=== PATIENT | female | born 2000 | race Caucasian/White ===

== ENCOUNTER → 2022-02-01 | Outpatient (CLI) | payer OTHER, SELFPAY ==
[2022-02-01 12:35] LABS: Amphetamine Urine VISTA NEGATIVE (<1000 ng/mL); Barbiturate Urine VISTA NEGATIVE (< 200 ng/mL); Benzodiazepine Urine VISTA NEGATIVE (< 200 ng/mL); Cocaine Urine VISTA NEGATIVE (< 300 ng/mL); Ecstacy Urine VISTA NEGATIVE (< 500 ng/mL); Methadone Urine VISTA NEGATIVE (< 300 ng/mL); PCP Urine VISTA NEGATIVE (< 25 ng/mL); THC Urine VISTA NEGATIVE (< 50 ng/mL); Vista UDS pH Range 6
[2022-02-02 22:07] LABS: Chlamydia By Nucleic Acid AMP Negative (Negative)
[2022-02-04 14:59] LABS: Gonococcus By Nucleic Acid AMP Negative (Negative)
== END | disposition home or self-care (01) ==
PROVIDERS: Referring Provider Obstetrics & Gynecology; Visit Provider Obstetrics & Gynecology
DX: Z34.00 Encounter for supervision of normal first pregnancy, unspecified trimester (principal)
CPT/HCPCS: 80307; 87077; 87086; 87088; 87186; 87491; 87591

== ENCOUNTER → 2022-02-13 | Outpatient (CLI) | payer OTHER, SELFPAY ==
[2022-02-13 15:25] LABS: Absolute Lymphocyte Count 1.89 X10^3/uL (0.83-4.51); Absolute Neutrophil Count 8.4 X10^3/uL (2.0-7.7); Basophil# 0.03 X10^3/uL; Basophil% 0.3 % (0-1); Eosinophils% 1.8 % (0-5); Hematocrit 38.3 % (37-47); Hemoglobin 12.6 g/dL (12.0-15.0); Lymphocyte # 1.89 X10^3/ul (0.83-4.51); Lymphocyte % 16.6 % (19-41); Mean Corp Hgb Conc 32.9 g/dL (32-36); Mean Corpuscular Hgb 27.9 pg (27.0-32.0); Mean Corpuscular Volume 84.7 fL (81-99); Mean Platelet Vol. 10.3 fl (6.2-12.0); Monocyte# 0.81 X10^3/uL; Monocyte% 7.1 % (0-10); NRBC Flagged by Analyzer 0 % (0-5); Neutrophil # 8.38 X10^3/uL (2.7-7.7); Neutrophil % 73.7 % (47-70); Platelet Count 458 K/mm3 (150-450); RBC Distribution Width CV 13.2 % (11.6-14.6); RBC Distribution Width SD 40.8 fl (35.1-43.9); Red Blood Count 4.52 M/mm3 (4.2-5.4); White Blood Count 11.4 K/mm3 (4.4-11.0)
[2022-02-13 16:05] LABS: NATERA MAILED SPECIMEN
[2022-02-13 17:06] LABS: HIV - WCH Non-Reactive (Nonreactive); Hepatitis B Surface Antigen Non-Reactive (Nonreactive); Hepatitis C Antibody Non-Reactive (Nonreactive); Rubella IgG Reactive (Nonreactive); Syphilis Antibodies Non-reactive
== END | disposition home or self-care (01) ==
LOC: PAVLAB 14:57
PROVIDERS: Referring Provider Obstetrics & Gynecology; Visit Provider Obstetrics & Gynecology
DX: Z34.81 Encounter for supervision of other normal pregnancy, first trimester (principal); Z31.430 Encounter of female for testing for genetic disease carrier status for procreative management
CPT/HCPCS: 36415; 85025; 86703; 86762; 86780; 86803; 86850; 86900; 86901; 87340

== ENCOUNTER → 2022-06-05 | Outpatient (CLI) | payer OTHER, SELFPAY ==
[2022-06-05 08:08] LABS: Absolute Neutrophil Count 10.5 X10^3/uL (2.0-7.7); Basophil# 0.05 X10^3/uL; Basophil% 0.4 % (0-1); Eosinophil# 0.35 X10^3/uL; Eosinophils% 2.6 % (0-5); Hemoglobin 11.5 g/dL (12.0-15.0); Lymphocyte % 12.5 % (19-41); Mean Corp Hgb Conc 32.9 g/dL (32-36); Mean Corpuscular Hgb 28.1 pg (27.0-32.0); Mean Corpuscular Volume 85.6 fL (81-99); Monocyte# 0.69 X10^3/uL; Monocyte% 5.1 % (0-10); NRBC Flagged by Analyzer 0 % (0-5); Neutrophil # 10.45 X10^3/uL (2.7-7.7); Neutrophil % 76.8 % (47-70); Platelet Count 415 K/mm3 (150-450); RBC Distribution Width CV 13.8 % (11.6-14.6); RBC Distribution Width SD 43.1 fl (35.1-43.9); Red Blood Count 4.09 M/mm3 (4.2-5.4); White Blood Count 13.6 K/mm3 (4.4-11.0)
[2022-06-05 08:26] LABS: Glucose Challenge Gest 1H 50g 162 mg/dL (70-140)
[2022-06-05 08:58] LABS: HIV - WCH Non-Reactive (Nonreactive); Syphilis Antibodies Non-reactive
== END | disposition home or self-care (01) ==
LOC: PAVLAB 07:36
PROVIDERS: Obstetrics & Gynecology; PCP Registered Nurse; Referring Provider Nurse Practitioner Women's Health; Visit Provider Nurse Practitioner Women's Health
DX: O23.40 Unspecified infection of urinary tract in pregnancy, unspecified trimester (principal); B95.1 Streptococcus, group B, as the cause of diseases classified elsewhere; Z3A.00 Weeks of gestation of pregnancy not specified
CPT/HCPCS: 36415; 82950; 85025; 86703; 86780

== ENCOUNTER → 2022-06-12 | Outpatient (CLI) | payer OTHER, SELFPAY ==
[2022-06-12 10:48] LABS: Glucose GTT-Gestation. Fasting 90 mg/dL (<105)
[2022-06-12 12:33] LABS: Glucose GTT-Gestational 1 Hr 142 mg/dL (<190)
[2022-06-12 12:36] LABS: Glucose GTT-Gestational 2 Hr 131 mg/dL (<165)
[2022-06-12 13:51] LABS: Glucose GTT-Gestational 3 Hr 115 L (<145)
== END | disposition home or self-care (01) ==
LOC: LAB 09:57
PROVIDERS: PCP Registered Nurse; Referring Provider Obstetrics & Gynecology; Visit Provider Obstetrics & Gynecology
DX: O23.40 Unspecified infection of urinary tract in pregnancy, unspecified trimester (principal); B95.1 Streptococcus, group B, as the cause of diseases classified elsewhere; Z3A.00 Weeks of gestation of pregnancy not specified
CPT/HCPCS: 36415; 82951; 82952; 86900; 86901

== ENCOUNTER 2022-08-10 14:47 | Inpatient (IN) | payer OTHER, MEDICAID, SELFPAY ==
[2022-08-10] VITALS (23 sets, daily range): BP systolic 104–147; BP diastolic 53–84; PULSE 78–104; TEMP 36.7–37.4; O2SAT 98–100; BMI 42.0
[2022-08-10 14:39] LABS: ROM Internal Control Test YES-OK TO RESULT pt. (Internal QC)
[2022-08-10 14:40] LABS: ROM Patient Test POSITIVE (Negative)
[2022-08-10] MEDS: Lactated Ringers 1,000 ML 50 ML IV (15:20)
[2022-08-10 15:48] LABS: Absolute Lymphocyte Count 1.37 X10^3/uL (0.83-4.51); Absolute Neutrophil Count 8.5 X10^3/uL (2.0-7.7); Basophil# 0.04 X10^3/uL; Basophil% 0.4 % (0-1); Eosinophil# 0.08 X10^3/uL; Eosinophils% 0.7 % (0-5); Hematocrit 33.2 % (37-47); Hemoglobin 10.5 g/dL (12.0-15.0); Lymphocyte # 1.37 X10^3/ul (0.83-4.51); Lymphocyte % 12.1 % (19-41); Mean Corp Hgb Conc 31.6 g/dL (32-36); Mean Corpuscular Hgb 25.7 pg (27.0-32.0); Mean Corpuscular Volume 81.4 fL (81-99); Mean Platelet Vol. 10.8 fl (6.2-12.0); Monocyte% 7.1 % (0-10); NRBC Flagged by Analyzer 0 % (0-5); Neutrophil # 8.53 X10^3/uL (2.7-7.7); Neutrophil % 75.3 % (47-70); Platelet Count 454 K/mm3 (150-450); RBC Distribution Width CV 14.2 % (11.6-14.6); RBC Distribution Width SD 41.1 fl (35.1-43.9); Red Blood Count 4.08 M/mm3 (4.2-5.4); White Blood Count 11.3 K/mm3 (4.4-11.0)
[2022-08-10] MEDS: Oxytocin 15 Units/NS 250ml 15 UNITS/250 ML IV.SOLN 2 UNITS IV (16:10)
[2022-08-10 16:25] LABS: Syphilis Antibodies Non-reactive
[2022-08-10] MEDS: LACTATED RINGERS 500 ML 999 ML IV (19:45)
[2022-08-10 20:18] LABS: International Normalized Ratio 1.1; Prothrombin Time (Protime)PT. 13.5 SECONDS (11.7-14.9)
[2022-08-10 20:19] LABS: Partial Thromboplast Time 27.4 Seconds (24.1-36.2)
[2022-08-10] MEDS: Penicillin G 3,000,000 Units 50 ML 100 UNITS IV (20:22)
[2022-08-10] MEDS: fentaNYL-bupivacaine (epidural) 100 ML BAG EPIDURAL (20:50)
[2022-08-10 20:58] LABS: AST(SGOT) 17 U/L (15-37); Alanine Aminotransfer ALT/SGPT 26 U/L (13-56); Creatinine, Serum 0.67 mg/dL (0.55-1.02); EST Glomerular Filtration Rate 114 mL/min (>60); Est Glom Filt Rate - Afr Amer 139 mL/min (>60); Estimated Creatinine Clearance 126.99 ml/min; Uric Acid 6.1 mg/dL (2.6-6.0)
[2022-08-10] MEDS: Ondansetron 4 MG/2 ML Vial IV (22:50)
[2022-08-10] MEDS: Lactated Ringers 1,000 ML 200 ML IV (23:12)
[2022-08-11] VITALS (40 sets, daily range): BP systolic 102–141; BP diastolic 52–81; PULSE 77–100; RESP 16–18; TEMP 36.4–37.8; O2SAT 98–100
[2022-08-11] MEDS: Penicillin G 3,000,000 Units 50 ML 100 UNITS IV ×4 (00:10→12:03)
[2022-08-11 00:38] LABS: Protein, Urine (Random) 18.1 mg/dL (<11.9); Protein:Creat Ratio 156 mg/g CRE (0-200)
[2022-08-11] MEDS: fentaNYL-bupivacaine (epidural) 100 ML BAG EPIDURAL ×3 (01:24→10:53)
--- NOTE | 2022-08-11 03:40 | HP.PCM.OB_ITS ---
HPI - General General Date of Admission: 08/10/22 HPI Narrative OLU GIORDANO, is a 21 F who presents with SROM clear fluid no regular ctx no vb good fm. Maternal Data Information ANN-MARIE Calculator Estimated Delivery Date Method Current WG Current Estimate 08/29/22 Ultrasound #1 37w 3d Other Estimates 09/05/22 LMP (Certain) 36w 3d PFSH PFSH Medical History (Updated 08/11/22 @ 03:[address] Anjali Tinajero MD) Anxiety Colitis Family history of hearing loss at age younger than 7 years Home Medications multivitamin no.47-iron fum 27 mg-folate no.1 1 mg-dha 300 mg capsule (PNV-DHA) cap PO 01/21/22 [History Last Taken Unknown] aspirin 81 mg chewable tablet 81 mg PO DAILY 08/10/22 [History Last Taken 08/09/22] magnesium sulfate 100 mg capsule 100 mg PO DAILY 08/10/22 [History Last Taken Unknown] vitamin B complex 1 cap PO PCHS 08/10/22 [History Last Taken 08/09/22] Allergy/AdvReac Type Severity Reaction Status Date / Time Seasonal Allergies: Uncoded Allergy Mild Other Verified 08/07/22 08:49 Family History Mother Hypertension Brother Congenital heart defect at 6 days old Surgical History Hx of appendectomy Social History household members: significant other housing: house current occupational status: employed current occupation: [employer] pets and animals: Yes pets and animals: dog(s) history of recent travel: Yes ([place]) Smoking Status: Former smoker second hand exposure: No alcohol intake: current details: Not while substance use type: former substance user and other details: marijuana caffeine: Yes seatbelt use: always do you feel safe at home: Yes additional social history: Boyfriend- Jesse (Senior Storage Engineer) History 1 Elective abortions Hx Para 0 Spontaneous abortions Hx # Term Pregnancies Ectopic pregnancies Hx # Pregnancies Multiple births # of living children Visit Details Expected Delivery Route/Plan Labor Preferences- CB/BF classes: enc labor support person: Jesse labor intervention preferences: [] pain management options preferred: epidural cut cord/dad catch: cord : yes PP control planned: discussed discussed possible routes of delivery and associated risks: [] special requests: [] Plans Covid status: discussed Flu vaccine: given Tdap vaccine: given Rhogam: NA LARC form signed: yes movement and labor precautions reviewed. Problem list reviewed and updated with the most current plan of care details and appropriate orders placed. Relevant counseling for the gestational age provided. Continue routine care and follow up unless otherwise noted in visit notes/problem list details OB Flowsheet Initial Weight: Not Recorded Date -?-?-?-?-?-?-?-?-?-?-?-?- EGA Weight BP Urine Prot -?-?-?-?-?-?-?-?-?-?-?-?- Glucose FHR FuHt Pres Dilation -?-?-?-?-?-?-?-?-?-?-?-?- Effaced St Visit Note 02/01/22 -?-?-?-?-?-?-?-?-?-?-?-?- 10w 1d 239 lb 128/75 -?-?-?-?-?-?-?-?-?-?-?-?- 175 -?-?-?-?-?-?-?-?-?-?-?-?- JV- CRL off by 1 week. new ANN-MARIE is 08/29/21 02/27/22 -?-?-?-?-?-?-?-?-?-?-?-?- 13w 6d 237 lb 122/59 Negative -?-?-?-?-?-?-?-?-?-?-?-?- Negative 153 -?-?-?-?-?-?-?-?-?-?-?-?- LC- no vb,crampi ng. limited ultrasound for FHT. 153. anatomy scan w [facility] LC- no vb,cramping. limited ultrasound for FHT. 153. anatomy scan w [facility] . to start on LDA for elevated risk of PEC. 03/27/22 -?-?-?-?-?-?-?-?-?-?-?-?- 17w 6d 237 lb 100/70 Negative -?-?-?-?-?-?-?-?-?-?-?-?- Negative 150 -?-?-?-?-?-?-?-?-?-?-?-?- SM- no vb lof go od fm no regular ctx 04/25/22 -?-?-?-?-?-?-?-?-?-?-?-?- 22w 0d 244 lb 6 oz 124/68 Nega tive -?-?-?-?-?-?-?-?-?-?-?-?- Negative 145 -?-?-?-?-?-?-?-?-?-?-?-?- MH-No VB, LOF. G ood FM. No Concerns. Flu vaccine. 05/22/22 -?-?-?-?-?-?-?-?-?--?-?-?- 25w 6d 250 lb 110/64 Negative -?-?-?-?-?-?-?-?-?-?-?-?- Negative 150 27 -?-?-?-?-?-?-?-?-?-?-?-?- MH-No Vb, LOF. G ood FM. Larc. 06/05/22 -?-?-?-?-?-?-?-?-?-?-?-?- 27w 6d 253 lb 6 oz 115/70 Nega tive -?-?-?-?-?-?-?-?-?-?-?-?- Negative 145 28 -?-?-?-?-?-?-?-?-?-?-?-?- Sm- no vb lof go od fm n oreuglar ctx abnormal gluc 06/19/22 -?-?-?-?-?-?-?-?-?-?-?-?- 29w 6d 254 lb 6 oz 99/62 Nega tive -?-?-?-?-?-?-?-?-?-?-?-?- Negative 140 29 -?-?-?-?-?-?-?-?-?-?-?-?- LC-no vb/ctx/lof . good fm. normal 3 hour glucose. 07/03/22 -?-?-?-?-?-?-?-?-?-?-?-?- 31w 6d 258 lb 6 oz 125/80 115/70 Negative -?-?-?-?-?-?-?-?-?-?-?-?- Negative 135 32 -?-?-?-?-?-?-?-?-?-?-?-?- SM- no vb lof go od fm no regular ctx 07/17/22 -?-?-?-?-?-?-?-?-?-?-?-?- 33w 6d 265 lb 8 oz 124/73 Nega tive -?-?-?-?-?-?-?-?-?-?-?-?- Negative 133 34 -?-?-?-?-?-?-?-?-?-?-?-?- LC- no lob/vb/ct x. good fm. having tingling on hands- recommended wrist braces at night. 08/07/22 -?-?-?-?-?-?-?-?-?-?-?-?- 36w 6d 274 lb 2 oz 131/83 -?-?-?-?-?-?-?-?--?-?-?-?- 135 37 Cephalic -?-?-?-?-?-?-?-?-?-?-?-?- SM- no vb lof go od fm no reuglar ctx NST FHR Rate Baby A Baseline: 130 Variability:: Moderate Accelerations:: 15 x 15 Decelerations:: None NST Reactive:: Yes FHR Category:: Category I Uterine Activity:: irregular ROS Constitutional Constitutional: Reports systems reviewed and no addt'l complaints, except as documented ENT HEENT: Reports systems reviewed and no addt'l complaints, except as documented Cardiovascular Cardiovascular: Reports systems reviewed and no addt'l complaints, except as documented Respiratory/Chest Respiratory/Chest: Reports systems reviewed and no addt'l complaints, except as documented Gastrointestinal Gastrointestinal: Reports systems reviewed and no addt'l complaints, except as documented and nausea; Denies abdominal pain Genitourinary Genitourinary: Reports systems reviewed and no addt'l complaints, except as documented, contractions Details: present and frequency (regular ) and movement Details: present Musculoskeletal Musculoskeletal: Reports systems reviewed and no addt'l complaints, except as documented Integumentary Integumentary: Reports as per HPI Neurologic Neurologic: Reports systems reviewed and no addt'l complaints, except as documented Endocrine Endocrinology: Reports systems reviewed and no addt'l complaints, except as documented Vital Signs Vital Signs Vital Signs: 08/10/22 14:12 08/10/22 14:12 08/10/22 14:12 Temperature 99.3 F H Temperature Source Pulse Rate 85 Blood Pressure 145/74 H BP Systolic 145 BP Diastolic 74 Pulse Ox 08/10/22 15:02 08/10/22 15:02 08/10/22 15:40 Temperature Temperature Source Pulse Rate 104 H 88 Blood Pressure 147/79 H BP Systolic 147 BP Diastolic 79 Pulse Ox 08/10/22 15:40 08/10/22 17:25 08/10/22 17:28 Temperature 99.3 F H Temperature Source Pulse Rate Blood Pressure 137/84 H BP Systolic 137 BP Diastolic 84 Pulse Ox 100 08/10/22 17:28 08/10/22 19:47 08/10/22 20:09 Temperature 98.8 F Temperature Source Pulse Rate 94 97 Blood Pressure BP Systolic BP Diastolic Pulse Ox 08/10/22 20:09 08/10/22 20:10 08/10/22 20:10 Temperature Temperature Source Pulse Rate 88 Blood Pressure 142/66 H BP Systolic 142 BP Diastolic 66 Pulse Ox 99 08/10/22 20:14 08/10/22 20:14 08/10/22 20:19 Temperature Temperature Source Pulse Rate 98 101 H Blood Pressure BP Systolic BP Diastolic Pulse Ox 100 08/10/22 20:19 08/10/22 20:24 08/10/22 20:24 Temperature Temperature Source Pulse Rate 104 H Blood Pressure BP Systolic BP Diastolic Pulse Ox 99 100 08/10/22 20:30 08/10/22 20:30 08/10/22 17:28 Temperature Temperature Source Tympanic Pulse Rate 91 Blood Pressure BP Systolic BP Diastolic Pulse Ox 99 08/10/22 17:28 08/10/22 20:35 08/10/22 20:35 Temperature 98.1 F Temperature Source Pulse Rate 92 Blood Pressure BP Systolic BP Diastolic Pulse Ox 98 08/10/22 15:02 08/10/22 15:02 08/10/22 20:40 Temperature 98.5 F Temperature Source Tympanic Pulse Rate 87 Blood Pressure BP Systolic BP Diastolic Pulse Ox 08/10/22 20:40 08/10/22 20:48 08/10/22 20:48 Temperature Temperature Source Pulse Rate 92 Blood Pressure 116/57 L BP Systolic 116 BP Diastolic 57 Pulse Ox 98 08/10/22 20:53 08/10/22 20:53 08/10/22 20:59 Temperature Temperature Source Pulse Rate 86 Blood Pressure 104/53 L 112/53 L BP Systolic 104 112 BP Diastolic 53 53 Pulse Ox 08/10/22 20:59 08/10/22 21:03 08/10/22 21:03 Temperature Temperature Source Pulse Rate 87 90 Blood Pressure 124/60 H BP Systolic 124 BP Diastolic 60 Pulse Ox 08/10/22 21:07 08/10/22 21:07 08/10/22 21:12 Temperature Temperature Source Pulse Rate 87 Blood Pressure 128/70 H 129/70 H BP Systolic 128 129 BP Diastolic 70 70 Pulse Ox 08/10/22 21:12 08/10/22 21:43 08/10/22 21:43 Temperature Temperature Source Pulse Rate 85 78 Blood Pressure 129/65 H BP Systolic 129 BP Diastolic 65 Pulse Ox 08/10/22 22:13 08/10/22 22:13 08/10/22 22:18 Temperature 98.4 F Temperature Source Pulse Rate 83 Blood Pressure 113/55 L BP Systolic 113 BP Diastolic 55 Pulse Ox 08/11/22 00:00 08/11/22 00:01 08/11/22 00:01 Temperature 97.5 F L Temperature Source Pulse Rate 88 Blood Pressure 115/56 L BP Systolic 115 BP Diastolic 56 Pulse Ox 08/11/22 00:01 08/11/22 01:08 08/11/22 01:08 Temperature Temperature Source Pulse Rate 85 Blood Pressure 122/66 H BP Systolic 122 BP Diastolic 66 Pulse Ox 100 08/11/22 01:08 08/11/22 01:08 08/11/22 01:08 Temperature 98.2 F Temperature Source Pulse Rate 82 Blood Pressure BP Systolic BP Diastolic Pulse Ox 99 08/11/22 02:29 08/11/22 02:30 08/11/22 02:30 Temperature 98.8 F Temperature Source Pulse Rate 77 Blood Pressure 115/63 BP Systolic 115 BP Diastolic 63 Pulse Ox 08/11/22 02:30 08/11/22 02:30 08/11/22 03:18 Temperature 98.6 F Temperature Source Pulse Rate 78 Blood Pressure BP Systolic BP Diastolic Pulse Ox 100 08/11/22 03:19 08/11/22 03:19 08/11/22 03:19 Temperature Temperature Source Pulse Rate 83 Blood Pressure 102/52 L BP Systolic 102 BP Diastolic 52 Pulse Ox 100 Weight Weight: 268 lb Body Mass Index (BMI) 42.0 Physical Exam Const alert, oriented x3 and healthy appearing Constitutional Narrative: uncomfortable with contractions HEENT normocephalic and moist oral mucous membranes Head and Scalp: atraumatic Neck full ROM, no lymphadenopathy, supple and thyroid normal General: trachea midline Thyroid: thyroid normal Lymph Lymphatic: no lymphadenopathy noted Chest inspection of chest normal Resp normal respiratory effort Cardio regular rate GI normal to inspection, nondistended, normoactive bowel sounds, soft to palpation and non-tender Inspection: gravid external exam normal Bimanual Exam - Vag & Uterus: uterus non-tender Manual OB Exam: estimated gestational size appropriate, presentation cephalic (face presentation), dilated 1.5, effaced 50 and station -3 Extremity normal to inspection General Extremity: Negative for edema Skin no rashes or lesions noted Neuro deep tendon reflexes 2+ bilaterally Motor Exam: strength 5/5 throughout and clonus absent Psych mental status grossly normal Labs Labs Labs: Blood Type A POSITIVE Antibody Screen NEGATIVE Hct 33.2 % (37-47) L Hgb 10.5 g/dL (12.0-15.0) L Syphilis Total Ab Non-reactive Rubella IgG Antibody Reactive (Nonreactive) Hep Bs Antigen Non-Reactive (Nonreactive) Chlamydia DNA (KANDIS) Negative (Negative) Neisseria gonorrhoeae DNA (KANDIS) Negative (Negative) HIV 1&2 Antibody Non-Reactive (Nonreactive) Glucose 1 Hr 50 gm 162 mg/dL (70-140) H Assessment & Plan (1) : QUALIFIERS: Weeks of gestation: 36 weeks Qualified Code(s): Z3 A.36 - 36 weeks gestation of COMMENT: NIPT low risk, carrier neg. . neg afp screen. nl anatomy. (2) GBS (group B streptococcus) UTI complicating : COMMENT: Treat with PCN in labor (3) Elevated platelet count: COMMENT: repeat cbc at 26 weeks, mildly elevated. normal with 28 week labs.-[id number] (4) Obesity (BMI 35.0-39.9 without comorbidity): COMMENT: initial BMI 37. encourage healthy weight gain (5) Family history of congenital heart defect: COMMENT: nl echo. patients brother had hypoplastic left heart. Echo 05/01/22- normal (6) Abnormal glucose affecting : COMMENT: 3 hour gtt normal (7) Supervision of high-risk : COMMENT: PRR ANN-MARIE: 08/29/22 boy Giacomo Boyfriend-Jesse (8) SROM (spontaneous rupture of membranes): PLAN: Plan Patient presents IAL, plan expectant management for , plan pitocin, position changes reviewed with nursing and repeat exam 3 hours later revealed face no longer palpable and calvarium now palpable Pain management: plans epidural. GBS positive plan IV PCN. Management of any complications: none I have reviewed the [facility] and made any clinically relevant updates.
--- NOTE | 2022-08-11 03:48 | PN_ITS ---
Progress Note slow labor progress, pitocin at 16mU current tracing: FHT: 120-130 Moderate variability reactive occasional periodic variable, early category II tracing [place]: q2-3 Contractions adequate reviewed tracing abnormalities since last note: periodic variable occasional, early A/P: patient exam done and internals placed, feels CHANDRAKANT but also has some caput, difficult to fully assess due to limited dilated 4-5 cm 60 -2. continue pit per protocol, consider pitocin washout, reviewed labor positions with nursing.
[2022-08-11] MEDS: Lactated Ringers 1,000 ML 200 ML IV ×2 (05:33→12:05)
[2022-08-11] MEDS: Amnioinfusion- 0.9% NS 1,000 ML IV.SOLN. 1000 ML INTRA-UTER (08:07)
[2022-08-11] MEDS: Ondansetron 4 MG/2 ML Vial IV (13:04)
[2022-08-11] MEDS: Oxytocin 15 Units/NS 250ml 15 UNITS/250 ML IV.SOLN 16 UNITS IV (13:14)
--- NOTE | 2022-08-11 14:22 | OP.PCM_ITS ---
Assessment & Plan (1) GBS (group B streptococcus) UTI complicating : COMMENT: Treat with PCN in labor. afebrile (2) : QUALIFIERS: Weeks of gestation: 36 weeks Qualified Code(s): Z3A.36 - 36 weeks gestation of COMMENT: NIPT low risk, carrier neg. . neg afp screen. nl anatomy. (3) SROM (spontaneous rupture of membranes): COMMENT: clear, afebrile (4) (spontaneous vaginal delivery): Maternal Data Information ANN-MARIE Calculator Estimated Delivery Date Method Current WG Current Estimate 08/29/22 Ultrasound #1 37w 3d Other Estimates 09/05/22 LMP (Certain) 36w 3d Vaginal Delivery Maternal Presentation Maternal Presentation: Spontaneous Rupture of Membranes Type of Induction: Pitocin Operative Information Date of Procedure: 08/11/22 Pre-Operative Diagnosis: Post-Operative Diagnosis: Surgery / Procedure Performed: Spontaneous Vaginal Delivery Type of Anesthesia: Epidural Drain: Beebe to straight drain Estimated Blood Loss: 250 Time of Delivery: 13:51 Findings Description of Procedure: Patient began pushing and delivered the head in the CHANDRAKANT presentation. The head was delivered atraumatically and a loose nuchal cord ?1 was identified and easily reduced over the 's head. The anterior and posterior shoulders delivered without complication followed by the rest of the and the was placed on the maternal abdomen. Delayed cord clamping was employed for approximately 60 seconds. Cord was clamped and cut and gentle traction was applied to the cord and the placenta delivered spontaneously immediately following it was noted to be intact with three-vessel cord. The perineum and vagina were inspected and noted to have no laceration. EBL was 250cc. Patient and tolerated delivery well. Presentation: Vertex Amniotic Membrane Rupture Type: Spontaneous Amniotic Fluid Description: Clear Placental Delivery Description: Spontaneous Placenta Disposition: [facility] Cord Vessel Description: 3 Vessels Cord Entanglement: Around neck x 1, loose Nuchal Cord Compression: With compression Infant A Gender: Male (1 minute): 7 (5 minute): 9 Delayed Cord Clamping: Yes Post Vaginal Delivery Medications Given After Delivery: IV Pitocin Episiotomy Description: None Laceration: None Addendum Addendum: ATTN [employer] CNM DELIVERY
[2022-08-11] MEDS: Oxytocin 15 Units/NS 250ml 15 UNITS/250 ML IV.SOLN 83 UNITS IV (15:00)
[2022-08-11] MEDS: Acetaminophen 500 MG Tablet PO (21:54)
[2022-08-12] VITALS (10 sets, daily range): BP systolic 113–139; BP diastolic 58–70; PULSE 76–88; RESP 16–18; TEMP 36.4–37.2; O2SAT 97–100
[2022-08-12] MEDS: Naproxen 500 MG Tablet PO ×2 (08:11→16:23)
--- NOTE | 2022-08-12 11:04 | PCM.PN.OB ---
Subjective Subjective Patient doing well without complaints. Tolerating PO. Ambulating and voiding without difficulty. Feeding well. Denies chest pain, shortness of breath, calf pain/swelling, fevers, chills, lightheadedness. Objective Data Objective Data Vital Signs: Vital Signs Temp Pulse Resp BP Pulse Ox O2 Del Method 97.6 F L 88 16 123/68 H 100 Room Air 08/12/22 07:53 08/12/22 07:53 08/12/22 07:53 08/12/22 07:53 08/12/22 07:53 08/12/22 07:53 Oxygen Delivery Method Room Air Weight: 268 lb Body Mass Index (BMI) 42.0 Intake & Output: Intake and Output for Last 24 Hours 08/10/22 08/11/22 08/12/22 23:59 23:59 23:59 Intake Total 1401.90 / 1401.90 3043.60 / 3043.60 Output Total 2950 / 2950 Balance 1401.90 / 1401.90 93.60 / 93.60 Lab / Micro Data Attestation: I reviewed the patient's lab results. Result Diagrams: 08/10/22 15:20 08/10/22 15:20 Physical Exam Const alert and no apparent distress Eyes PERRL Neck full ROM and no lymphadenopathy Chest inspection of chest normal and inspection of breasts normal Resp normal respiratory effort, normal air movement and no retractions Cardio regular rate and regular rhythm GI normal to inspection, nondistended, normoactive bowel sounds GI Narrative: fundus firm at u, lochia rubra. Extremity normal to inspection and full ROM Skin no rashes or lesions noted Psych mental status grossly normal Assessment & Plan (1) (spontaneous vaginal delivery): COMMENT: SROM 37 weeks. , LC boy: gissell (2) Obesity (BMI 35.0-39.9 without comorbidity): COMMENT: initial BMI 37. encourage healthy weight gain PLAN: Plan s/p PPD # 1 1. routine post delivery care 2. breast feeding- support given 3. rh positive 4. rubella immune 5. plan d/c home tomorrow
[2022-08-12] MEDS: Acetaminophen 500 MG Tablet 1000 MG PO ×2 (11:47→22:51)
[2022-08-13 02:26] VITALS: TEMP 36.9
[2022-08-13 02:27] VITALS: BP 123/65; PULSE 72
[2022-08-13 02:36] VITALS: BP 123/65; PULSE 72; RESP 16; TEMP 36.9; O2SAT 99
[2022-08-13 07:42] VITALS: BP 131/68; PULSE 78
--- NOTE | 2022-08-13 09:19 | PCM.PN.OB ---
Subjective Subjective Patient doing well without complaints. Tolerating PO. Ambulating and voiding without difficulty. Feeding well. Denies chest pain, shortness of breath, calf pain/swelling, fevers, chills, lightheadedness. Objective Data Objective Data Vital Signs: Vital Signs Temp Pulse Resp BP Pulse Ox O2 Del Method 98.5 F 78 16 131/68 H 99 Room Air 08/13/22 02:36 08/13/22 07:42 08/13/22 02:36 08/13/22 07:42 08/13/22 02:36 08/13/22 02:36 Oxygen Delivery Method Room Air Weight: 268 lb Body Mass Index (BMI) 42.0 Intake & Output: Intake and Output for Last 24 Hours 08/11/22 08/12/22 08/13/22 23:59 23:59 23:59 Intake Total 3043.60 / 3043.60 Output Total 2950 / 2950 Balance 93.60 / 93.60 Lab / Micro Data Attestation: I reviewed the patient's lab results. Result Diagrams: 08/10/22 15:20 08/10/22 15:20 Physical Exam Const alert and no apparent distress Eyes PERRL Neck full ROM and no lymphadenopathy Chest inspection of chest normal and inspection of breasts normal Resp normal respiratory effort, normal air movement and no retractions Cardio regular rate and regular rhythm GI normal to inspection, nondistended, normoactive bowel sounds GI Narrative: fundus firm at u, lochia rubra. Extremity normal to inspection and full ROM Skin no rashes or lesions noted Psych mental status grossly normal Assessment & Plan (1) (spontaneous vaginal delivery): COMMENT: SROM 37 weeks. , GABRIEL boy: gissell PLAN: s/p PPD # 2 1. routine post delivery care 2. breast feeding- support given 3. rh positive 4. rubella immune 5. d/c home today
--- NOTE | 2022-08-13 09:20 | PCM.DC.SUM ---
Providers Date of Admission: 08/10/22 Primary Care Physician: CLARENCE VALDEZ, [facility] [facility] Reason For Visit: VAG DELIVERY Diagnosis Discharge Diagnosis (1) (spontaneous vaginal delivery): Status: Acute Code(s): O80 - Encounter for full-term uncomplicated delivery Plan: s/p PPD # 2 1. routine post delivery care 2. breast feeding- support given 3. rh positive 4. rubella immune 5. d/c home today Medications at Discharge Home Medications multivitamin no.47-iron fum 27 mg-folate no.1 1 mg-dha 300 mg capsule (PNV-DHA) cap PO 01/21/22 magnesium sulfate 100 mg capsule 100 mg PO DAILY 08/10/22 vitamin B complex 1 cap PO PCHS 08/10/22 Hospital Course Operations None Procedures None Summary of Care Provided Hospital Course: on 08/11 at 37 weeks. support provided. was syringe feeding and breast feeding, now primarily . stable pp course Physical Exam Const alert and no apparent distress Eyes PERRL Neck full ROM and no lymphadenopathy Chest inspection of chest normal and inspection of breasts normal Resp normal respiratory effort, normal air movement and no retractions Cardio regular rate and regular rhythm GI normal to inspection, nondistended, normoactive bowel sounds GI Narrative: fundus firm at u, lochia rubra. Extremity normal to inspection and full ROM Skin no rashes or lesions noted Psych mental status grossly normal Weight / BMI Weight Weight: 268 lb Body Mass Index (BMI) 42.0 ABG / Lab / Microbiology Data Result Diagrams: 08/10/22 15:20 08/10/22 15:20 D/C Instructions Discharge Diet: No restrictions Discharge Activity: Return to Normal Activity May resume sexual activity in: 6-8 weeks (after visit) Call your doctor if you observe: Fever of 101 or Higher, Inability to urinate, Using more than 1 pad per hour, Shortness of breath, Dizziness, Fainting spells, Chest pain, Increased palpitations (irregular heartbeat), Calf discomfort and Uncontrolled pain Please Follow Up With: Jaclyn Sharma CNM When: 6 weeks Meaningful Use Info Meaningful Use Diagnoses (Choose all that apply): None applicable Discharge Plan Admission Admit Date/Time: 08/10/22 14:47 Attending Provider: Jaclyn Sharma Primary Care Provider: CLARENCE VALDEZ Instructions Patient Instructions: After a Vaginal Discharge Orders/Prescriptions Prescriptions: Continued PNV-DHA 27 mg iron-1 mg -300 mg capsule PO Rx Instructions: not currently taking vitamin B complex Capsule 1 cap PO PCHS magnesium sulfate 100 mg Capsule 100 mg PO DAILY Discontinued aspirin [Aspirin Child] 81 mg Tablet,Chewable 81 mg PO DAILY Referrals / Follow Up: CLARENCE VALDEZ, [employer] [Primary Care Provider] - Disposition Disposition (needs filled in before D/C Order can be placed): Home, Self Care
== END 2022-08-13 11:52 | disposition home or self-care (01) | DRG 805 ==
LOC: WP 08-11 08:53 → WPOUT 08-11 11:41
PROVIDERS: Admitting Provider Registered Nurse; PCP Registered Nurse; Referring Provider Obstetrics & Gynecology; Visit Provider Registered Nurse
DX: O42.913 Preterm premature rupture of membranes, unspecified as to length of time between rupture and onset of labor, third trimester (principal); Z37.0 Single live birth; O60.14X0 Preterm labor third trimester with preterm delivery third trimester, not applicable or unspecified; O99.814 Abnormal glucose complicating childbirth; O99.824 Streptococcus B carrier state complicating childbirth; O99.214 Obesity complicating childbirth; O69.1XX0 Labor and delivery complicated by cord around neck, with compression, not applicable or unspecified; Z3A.36 36 weeks gestation of pregnancy; Z87.891 Personal history of nicotine dependence
CPT/HCPCS: 59025; 59050; 82565; 82570; 84112; 84156; 84450; 84460; 84550; 85025; 85610; 85730; 86780; 86850; 86900; 86901; 99221; 99406; J7030; J7120; G0378; J2405

== ENCOUNTER → 2023-11-26 | Outpatient (CLI) | payer OTHER, SELFPAY ==
[2023-12-02 09:45] LABS: HPV Reflexed? NOT INDICATED
== END | disposition home or self-care (01) ==
PROVIDERS: PCP Registered Nurse; Referring Provider Obstetrics & Gynecology; Visit Provider Obstetrics & Gynecology
DX: Z12.4 Encounter for screening for malignant neoplasm of cervix (principal)
CPT/HCPCS: 88175; G0145

== ENCOUNTER → 2024-08-15 | Outpatient (CLI) | payer OTHER, SELFPAY ==
[2024-08-15 13:30] LABS: Amphetamine Urine NEGATIVE (<1000 ng/mL); Barbiturate Urine NEGATIVE (< 200 ng/mL); Benzodiazepine Urine NEGATIVE (< 200 ng/mL); Buprenorphine Urine NEGATIVE (< 200 ng/mL); Cocaine Urine NEGATIVE (< 300 ng/mL); Fentanyl, Urine NEGATIVE; Methadone Urine NEGATIVE (< 300 ng/mL); Opiates Urine NEGATIVE (< 300 ng/mL); Oxycodone, Urine NEGATIVE (< 100 ng/mL); PCP Urine NEGATIVE (< 25 ng/mL); THC Urine PRESUMPTIVE POSITIVE (< 50 ng/mL)
[2024-08-18 21:07] LABS: Chlamydia By Nucleic Acid AMP Negative (Negative); Gonococcus By Nucleic Acid AMP Negative (Negative)
== END | disposition home or self-care (01) ==
LOC: LABSPEC 11:40
PROVIDERS: PCP Registered Nurse; Referring Provider Advanced Practice Midwife; Visit Provider Advanced Practice Midwife
DX: O09.90 Supervision of high risk pregnancy, unspecified, unspecified trimester (principal); O99.320 Drug use complicating pregnancy, unspecified trimester; F12.10 Cannabis abuse, uncomplicated; Z3A.00 Weeks of gestation of pregnancy not specified
CPT/HCPCS: 80307; 87086; 87491; 87591

== ENCOUNTER → 2024-09-09 | Outpatient (CLI) | payer OTHER, SELFPAY ==
[2024-09-09 12:06] LABS: Absolute Lymphocyte Count 1.81 X10^3/uL (0.83-4.51); Absolute Neutrophil Count 7.6 X10^3/uL (2.0-7.7); Basophil# 0.04 X10^3/uL; Basophil% 0.4 % (0-1); Eosinophil# 0.13 X10^3/uL; Eosinophils% 1.3 % (0-5); Hematocrit 40.3 % (37-47); Lymphocyte # 1.81 X10^3/ul (0.83-4.51); Lymphocyte % 17.7 % (19-41); Mean Corp Hgb Conc 32.3 g/dL (32-36); Mean Corpuscular Hgb 28.4 pg (27.0-32.0); Mean Platelet Vol. 10.7 fl (6.2-12.0); Monocyte# 0.62 X10^3/uL; Monocyte% 6.1 % (0-10); NRBC Flagged by Analyzer 0 % (0-5); Neutrophil # 7.55 X10^3/uL (2.7-7.7); Neutrophil % 73.9 % (47-70); Platelet Count 415 K/mm3 (150-450); RBC Distribution Width CV 13.1 % (11.6-14.6); RBC Distribution Width SD 41.9 fl (35.1-43.9); Red Blood Count 4.58 M/mm3 (4.2-5.4); White Blood Count 10.2 K/mm3 (4.4-11.0)
[2024-09-09 12:49] LABS: Hemoglobin A1c 5.2 % (<=5.6)
[2024-09-09 13:08] LABS: HIV Nonreactive (Nonreactive); Hepatitis B Surface Antigen Nonreactive (Nonreactive); Rubella IgG Nonreactive (Nonreactive); Syphilis Antibodies Nonreactive (Nonreactive)
[2024-09-09 13:30] LABS: Hepatitis C Antibody Nonreactive (Nonreactive)
== END | disposition home or self-care (01) ==
LOC: BWCLAB 09:49
PROVIDERS: PCP Registered Nurse; Referring Provider Advanced Practice Midwife; Visit Provider Advanced Practice Midwife
DX: O09.90 Supervision of high risk pregnancy, unspecified, unspecified trimester (principal); Z3A.00 Weeks of gestation of pregnancy not specified
CPT/HCPCS: 36415; 83036; 85025; 86703; 86762; 86780; 86803; 86850; 86900; 86901; 87340

== ENCOUNTER → 2024-12-30 | Outpatient (CLI) | payer OTHER, SELFPAY ==
[2024-12-30 12:21] LABS: Hematocrit 36.7 % (37-47); Hemoglobin 11.8 g/dL (12.0-15.0); Immature Granulocytes Count 0.300 X10^3/uL (0.0-0.0); Mean Corp Hgb Conc 32.2 g/dL (32-36); Mean Corpuscular Volume 85.0 fL (81-99); Mean Platelet Vol. 10.6 fl (6.2-12.0); NRBC Flagged by Analyzer 0 % (0-5); Platelet Count 397 K/mm3 (150-450); RBC Distribution Width CV 13.3 % (11.6-14.6); RBC Distribution Width SD 41.0 fl (35.1-43.9); Red Blood Count 4.32 M/mm3 (4.2-5.4); White Blood Count 13.2 K/mm3 (4.4-11.0)
[2024-12-30 13:23] LABS: Glucose Challenge Gest 1H 50g 175 mg/dL (70-140); HIV Nonreactive (Nonreactive); Syphilis Antibodies Nonreactive (Nonreactive)
== END | disposition home or self-care (01) ==
PROVIDERS: PCP Registered Nurse; Visit Provider Obstetrics & Gynecology
DX: O09.92 Supervision of high risk pregnancy, unspecified, second trimester (principal); Z3A.00 Weeks of gestation of pregnancy not specified
CPT/HCPCS: 36415; 82950; 85025; 86703; 86780

== ENCOUNTER → 2025-01-15 | Outpatient (CLI) | payer OTHER, SELFPAY ==
[2025-01-15 10:20] LABS: Glucose GTT-Gestation. Fasting 77 mg/dL (<105)
[2025-01-15 13:08] LABS: Glucose GTT-Gestational 1 Hr 158 mg/dL (<190)
[2025-01-15 13:10] LABS: Glucose GTT-Gestational 2 Hr 148 mg/dL (<165)
[2025-01-15 15:30] LABS: Glucose GTT-Gestational 3 Hr 79 L (<145)
== END | disposition home or self-care (01) ==
LOC: LAB 09:46
PROVIDERS: PCP Nurse Practitioner Family; Referring Provider Nurse Practitioner Women's Health; Visit Provider Nurse Practitioner Women's Health
DX: Z00.00 Encounter for general adult medical examination without abnormal findings (principal)
CPT/HCPCS: 36415; 82951; 82952

== ENCOUNTER → 2025-02-12 | Outpatient (CLI) | payer SELFPAY | END | disposition home or self-care (01) | PROVIDERS: PCP Nurse Practitioner Family; Referring Provider Obstetrics & Gynecology; Visit Provider Obstetrics & Gynecology | DX: O99.212 Obesity complicating pregnancy, second trimester (principal); Z3A.00 Weeks of gestation of pregnancy not specified | CPT/HCPCS: 76816 ==

== ENCOUNTER → 2025-02-20 | Outpatient (CLI) | payer SELFPAY ==
[2025-02-20 16:55] LABS: Glucose Challenge Gest 1H 50g 123 mg/dL (70-140)
== END | disposition home or self-care (01) ==
PROVIDERS: Obstetrics & Gynecology; PCP Nurse Practitioner Family; Visit Provider Nurse Practitioner Women's Health
DX: O36.60X0 Maternal care for excessive fetal growth, unspecified trimester, not applicable or unspecified (principal); Z3A.00 Weeks of gestation of pregnancy not specified
CPT/HCPCS: 36415; 82950

== ENCOUNTER 2025-02-26 12:30 | Outpatient (CLI) | payer BC, SELFPAY ==
[2025-02-26 12:44] VITALS: PULSE 97; O2SAT 100
[2025-02-26 12:45] VITALS: BP 140/80; PULSE 96; RESP 14; TEMP 37; O2SAT 100
[2025-02-26 13:11] VITALS: BMI 43.2
[2025-02-26 13:36] VITALS: BP 135/77; PULSE 96
--- NOTE | 2025-02-26 20:42 | PCM.HP.OB ---
HPI - General HPI Narrative OLU GIORDANO, is a 24 y/o who is getting nst's for obesity. She presented to the office first after drinking a coffee and the NST was equivocal due to marked variability. She was brought to L&D for longer monitoring. While here the baby continued to exhibit marked variability at times with runs of prolonged accelerations to the 180's. Maternal Data Information ANN-MARIE Calculator Estimated Delivery Date Method Current WG Current Estimate 03/22/25 LMP (Certain) 36w 6d Other Estimates 03/28/25 Ultrasound #1 36w 0d 03/25/25 Ultrasound #2 36w 3d PFSH PFSH Medical History Family history of hearing loss at age younger than 7 years Anxiety Home Medications ?Medication ?Instructions ?Recorded ?Last Taken ?Type docosahexaenoic acid 200 mg mg PO 08/01/24 Unknown History capsule ( DHA) famotidine 20 mg tablet (Pepcid) 20 mg PO BID #60 tabs 09/09/24 Unknown Rx promethazine 12.5 mg tablet 12.5 mg PO Q6H PRN nausea and 11/03/24 Unknown Rx vomiting #30 tabs Allergy/AdvReac Type Severity Reaction Status Date / Time Seasonal Allergies: Uncoded Allergy Mild Other Verified 02/26/25 11:32 Family History Mother Hypertension Brother Congenital heart defect at 6 days old Father Breast cancer, Onset Age: 59 genetic testing negative Sister Brain cancer Surgical History Hx of appendectomy Social History adopted: No household members: significant other and children housing: house number of children: 1 current occupational status: employed 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 current occupational exposures/hazards: No pets and animals: Yes pets and animals: dog(s) history of recent travel: No sexually active: Yes Smoking Status: Never smoker second hand exposure: No alcohol intake: current alcohol intake frequency: holidays/special occasions only details: Not while substance use type: former substance user Date of last use: 06/2024 - marijuana well-balanced diet: about half the time caffeine: Yes Type: coffee Number of servings: 1 eating out: 1-3 times/week during the past year weight has: decreased > 10 lbs what type of physical activity do you participate in: walking and weight training frequency: 3-4 times per week duration: 30-45 minutes/day patrizia/uatsdin: None seatbelt use: always do you feel safe at home: Yes additional social history: 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 Date Name GA/Weeks Outcome Route Bth Weight Infant Gen Labor Lgth Anesthesia Del Locatn Provider FOB 08/11/22 Giacomo 37 live - full term 6lbs 12oz Male epidural [facility] Zachary Molina Delivery Date: 08/11/22 Last Updated by: Katie Lemus RN See problem list for complications Visit Details Expected Delivery Route/Plan Labor Preferences- CB/BF classes: [] labor support person: [] labor intervention preferences: [] pain management options preferred: [] cut cord/dad catch: [] : [] PP control planned: [] discussed possible routes of delivery and associated risks: [] special requests: [] Plans Covid status: [] Flu vaccine: dec Tdap vaccine:given Rhogam: na LARC form signed: delcined movement and labor precautions reviewed. Problem list reviewed and updated with the most current plan of care details and appropriate orders placed. Relevant counseling for the gestational age provided. Continue routine care and follow up unless otherwise noted in visit notes/problem list details OB Flowsheet Initial Weight: Not Recorded Date <del>?</del> EGA Weight BP Urine Prot <del>?</del> Glucose FHR FuHt Pres Dilation <del>?</del> Effaced St Visit Note 08/15/24 <del>?</del> 8w 5d 254 lb 8 oz 113/75 <del>?</del> 157 <del>?</del> KW CRL not cons with dates. ANN-MARIE changed. accepts NIPT 09/09/24 <del>?</del> 12w 2d 256 lb 4 oz 127/75 Negative <del>?</del> Negative 160 <del>?</del> JV-CRL consistent with last scan. (11 weeks 6 days ) JV-CRL consistent with LMP and last ANN-MARIE was changed inappropriately as did not follow ACOG guidelines. 10/06/24 <del>?</del> 16w 1d 259 lb 2 oz 118/75 Negative <del>?</del> Negative 160 <del>?</del> KW- no vb/cramping. MFM US ordered. movement and FHT on handheld US today 11/03/24 <del>?</del> 20w 1d 262 lb 6 oz 105/66 Negative <del>?</del> Negative 145 <del>?</del> MH-No VB. Good FM Some headaches and typically resolved with tylenol/caffeine. Phenergan sent. reviewed S&S pre E. 12/03/24 <del>?</del> 24w 3d 270 lb 3 oz 114/69 Negative <del>?</del> Negative 150 25 <del>?</del> JV- no lof, vaginal bleeding, or dec fm. glucola ordered 12/30/24 <del>?</del> 28w 2d 270 lb 2 oz 119/77 Negative <del>?</del> Negative 140 28 <del>?</del> SM- no vb lof good fm no regular ctx nl echo per patient 01/13/25 <del>?</del> 30w 2d 273 lb 125/72 Negative <del>?</del> Negative 145 31 <del>?</del> SM- no vb lof good fm no reuglar ctx co back pain. 01/28/25 <del>?</del> 32w 3d 275 lb 2 oz 130/72 <del>?</del> 150 34 <del>?</del> Sm- no vb lof good fm n oreular ctx 02/12/25 <del>?</del> 34w 4d 277 lb 7 oz 133/76 Negative <del>?</del> Negative 135 <del>?</del> KW- no vb/lof/ctx KW- no vb/lof/ctx. had growth US today-pending. NST today 02/20/25 <del>?</del> 35w 5d 278 lb 7 oz 126/70 Negative <del>?</del> Negative 125 <del>?</del> KW- NST only reactive 02/26/25 <del>?</del> 36w 4d 278 lb 1 oz 123/65 Negative <del>?</del> Negative 140 <del>?</del> JV- marked variability, unable to tell baseline on nst. sending to L&D for further monitoring NST FHR Rate Baby A Baseline: 120- 140 Variability:: Moderate and Marked Accelerations:: 15 x 15 Decelerations:: None NST Reactive:: Yes FHR Category:: Category I Uterine Activity:: no contractions ROS Constitutional Constitutional: Reports systems reviewed and no addt'l complaints, except as documented Gastrointestinal Gastrointestinal: Denies bloating, constipation, cramping, diarrhea, nausea or vomiting Genitourinary Genitourinary: Reports other Details: Denies vaginal odor, vaginal bleeding, or vaginal discharge ; Denies difficulty urinating or flank pain Vital Signs Vital Signs Vital Signs: Weight Weight: 276 lb Body Mass Index (BMI) 43.2 Labs Labs Labs: Blood Type A POSITIVE Antibody Screen NEGATIVE Hct, (37-47) 36.7 % L Hgb, (12.0-15.0) 11.8 g/dL L Obstetrics Ultrasound Syphilis Total Ab, (Nonreactive) Nonreactive Rubella IgG Antibody, (Nonreactive) Nonreactive Hep Bs Antigen, (Nonreactive) Nonreactive Hepatitis C Antibody, (Nonreactive) Nonreactive Chlamydia DNA (KANDIS), (Negative) Negative N.gonorrhoeae DNA (KANDIS), (Negative) Negative HIV 1&2 Antibody, (Nonreactive) Nonreactive Glucose 1 Hr 50 gm, (70-140) 123 mg/dL Gest Glucose Tolerance mg/dL Assessment & Plan (1) Marked variability in heart rate: (2) Large for gestational age fetus affecting management of mother, antepartum: COMMENT: ac 96th %- repeat 1 hour. (3) Abnormal glucose affecting : COMMENT: passed glucose (4) Rubella non-immune status, antepartum: COMMENT: offer MMR PP (5) Obesity affecting : QUALIFIERS: Trimester: second trimester Obesity type affecting : unspecified obesity Qualified Code(s): O99.212 - Obesity complicating , second trimester COMMENT: BMI: 39.6, HgBA1C ordered w/NOB (6) History of GBS (group B streptococcus) UTI, currently : COMMENT: PCN in labor (7) Supervision of high-risk : QUALIFIERS: Trimester: second trimester Qualified Code(s): O09.92 - Supervision of high risk , unspecified, second trimester COMMENT: PRR, , ANN-MARIE 03/22, girl Ebony PC: Ledy Gooden: Jesse (8) : QUALIFIERS: Weeks of gestation: 36 weeks Qualified Code(s): Z3A.36 - 36 weeks gestation of COMMENT: NIPT low risk, prior carrier testing neg. nl anatomy (9) Marijuana use: COMMENT: Last use June 2024 - random tox ordered PLAN: Plan baseline between 120-140. ok to dc to home. Charges/Coding Multi Select Codes Urinary/Genital Urinary/Genital CPT Codes: 39036-49 non-stress test Interp
== END 2025-02-26 14:00 | disposition home or self-care (01) ==
LOC: WPOUT 12:35 → WP 12:35
PROVIDERS: PCP Nurse Practitioner Family; Referring Provider Obstetrics & Gynecology; Visit Provider Obstetrics & Gynecology
DX: O99.213 Obesity complicating pregnancy, third trimester (principal); O99.323 Drug use complicating pregnancy, third trimester; F12.99 Cannabis use, unspecified with unspecified cannabis-induced disorder; Z3A.36 36 weeks gestation of pregnancy
CPT/HCPCS: 59025; 59050; 99221; G0378

== ENCOUNTER → 2025-03-09 | Outpatient (CLI) | payer BC, SELFPAY ==
--- NOTE | 2025-03-09 11:51 | US_ITS ---
PROCEDURE: OB LIMITED WITH BIOMETRICS 03/09/2025 REASON FOR EXAM: GROWTH TECHNIQUE: Procedure Code: [id number] Modality: US Procedure: OB LIMITED WITH BIOMETRICS COMPARISON: February 12, 2025. FINDINGS Number: 1 Position: Vertex Placental Position: Anterior and not low-lying. Placental Abnormalities: No evidence of previa. DIMENSIONS: Biparietal Diameter: 9.3 cm: 37 weeks and 6 days: 66 percentile/ Head Circumference: 33.1 cm: 37 weeks and 5 days: 23rd percentile/ Abdominal Circumference: 35.2 cm: 39 weeks and 1 day: 89 percentile/ Femur Length: 7.5 cm: 38 weeks and 2 days: 57 percentile/ ESTIMATED WEIGHT: 3599 g plus/-540 g ESTIMATED WEIGHT PERCENTILE (24+ weeks): 78 percentile ESTIMATED GESTATIONAL AGE: Baseline: 38 weeks and 1 day By Ultrasound: 38 weeks and 1 day ESTIMATED DATE OF DELIVERY: Baseline: March 22, 2025 By Ultrasound: March 22, 2025 BIOPHYSICAL ASSESSMENT: Amniotic Fluid Volume: 5.2 cm Amniotic Fluid Index: 12.5 cm (8-24 cm normal range) Cardiac Motion: 133 beats per minute (average) Trunk and Limb Motion: Present. MATERNAL ANATOMY: Adnexa: Both maternal ovaries are visualized and unremarkable. US/OB Limited With Biometrics IMPRESSION: Single live intrauterine gestation with a mean gestational age of 38 weeks and 1 day. Reading Location: [id number]
== END | disposition home or self-care (01) ==
LOC: US 11:45
PROVIDERS: PCP Nurse Practitioner Family; Referring Provider Obstetrics & Gynecology; Visit Provider Obstetrics & Gynecology
DX: O99.213 Obesity complicating pregnancy, third trimester (principal); Z3A.38 38 weeks gestation of pregnancy
CPT/HCPCS: 76816

== ENCOUNTER 2025-03-16 10:34 | Inpatient (IN) | payer BC, SELFPAY ==
[2025-03-16] VITALS (33 sets, daily range): BP systolic 98–147; BP diastolic 49–84; PULSE 94–129; RESP 16–18; TEMP 36.6–37.3; O2SAT 95–100; BMI 43.1
[2025-03-16] MEDS: Lactated Ringers 1,000 ML 999 ML IV (10:35)
[2025-03-16 10:57] LABS: Hematocrit 35.2 % (37-47); Hemoglobin 11.5 g/dL (12.0-15.0); Immature Granulocytes Count 0.310 X10^3/uL (0.0-0.0); Mean Corp Hgb Conc 32.7 g/dL (32-36); Mean Corpuscular Volume 77.0 fL (81-99); Mean Platelet Vol. 11.5 fl (6.2-12.0); NRBC Flagged by Analyzer 0 % (0-5); Platelet Count 436 K/mm3 (150-450); RBC Distribution Width CV 15.4 % (11.6-14.6); RBC Distribution Width SD 41.6 fl (35.1-43.9); Red Blood Count 4.57 M/mm3 (4.2-5.4); White Blood Count 14.7 K/mm3 (4.4-11.0)
[2025-03-16 11:28] LABS: Alanine Aminotransfer ALT/SGPT 16 U/L (<=34); Syphilis Antibodies Nonreactive (Nonreactive)
[2025-03-16] MEDS: Penicillin G Pot 5,000,000 UNITS in 0.9% Normal Saline (100mL MB+) 100 ML 150 UNITS IV (11:28)
[2025-03-16 11:29] LABS: Creatinine, Urine (random) 89.20 mg/dL (28.00-217.00); Protein, Urine (Random) 14.3 mg/dL (0.0-12.0); Protein:Creat Ratio 160 mg/g CRE (0-200)
[2025-03-16 11:52] LABS: AST(SGOT) 23 U/L (<=31); Uric Acid 5.7 mg/dL (2.6-6.0)
[2025-03-16] MEDS: fentaNYL-bupivacaine (epidural) 100 ML BAG EPIDURAL ×3 (12:14→21:32)
[2025-03-16] MEDS: Lactated Ringers 1,000 ML 200 ML IV ×3 (12:17→23:28)
[2025-03-16] MEDS: LACTATED RINGERS 500 ML 999 ML IV (13:40)
--- NOTE | 2025-03-16 16:14 | HP.PCM.OB_ITS ---
HPI - General General Date of Admission: 03/16/25 HPI Narrative OLU GIORDANO, is a 24 F who presented in active labor in the setting of breech presentation. She is GBS positive. was otherwise complicated by rubella non-immune status, excess growth with normal repeat glcuola, family history of congenital heart defect, elevated BP without diagnosis of hypertension. Maternal Data Information ANN-MARIE Calculator Estimated Delivery Date Method Current WG Current Estimate 03/22/25 LMP (Certain) 39w 1d Other Estimates 03/28/25 Ultrasound #1 38w 2d 03/25/25 Ultrasound #2 38w 5d PFSH PFS Medical History (Updated 03/16/25 @ 16:[address] Sonia Patiño, DO) Family history of hearing loss at age younger than 7 years Anxiety Home Medications ?Medication ?Instructions ?Recorded ?Last Taken ?Type docosahexaenoic acid 200 mg 200 mg PO DAILY 08/01/24 Unknown History capsule ( DHA) famotidine 20 mg tablet (Pepcid) 20 mg PO BID indigest ion #60 tabs 09/09/24 03/15/25 22:00 Rx 20 mg promethazine 12.5 mg tablet 12.5 mg PO Q6H PRN nausea and 11/03/24 Unknown Rx vomiting #30 tabs Allergy/AdvReac Type Severity Reaction Status Date / Time Seasonal Allergies: Uncoded Allergy Mild Other Verified 03/16/25 10:50 Family History Mother Hypertension Brother Congenital heart defect at 6 days old Father Breast cancer, Onset Age: 59 genetic testing negative Sister Brain cancer Surgical History [place] teeth removed Hx of appendectomy Social History adopted: No household members: significant other and children housing: house number of children: 1 current occupational status: employed 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 current occupational exposures/hazards: No pets and animals: Yes pets and animals: dog(s) history of recent travel: No sexually active: Yes Smoking Status: Never smoker second hand exposure: No alcohol intake: current alcohol intake frequency: holidays/special occasions only details: Not while substance use type: former substance user Date of last use: 06/2024 - marijuana well-balanced diet: about half the time caffeine: Yes Type: coffee Number of servings: 1 eating out: 1-3 times/week during the past year weight has: decreased > 10 lbs what type of physical activity do you participate in: walking and weight training frequency: 3-4 times per week duration: 30-45 minutes/day patrizia/jainism: None seatbelt use: always do you feel safe at home: Yes additional social history: 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 Date Name GA/Weeks Outcome Route Bth Weight Infant Gen Labor Lgth Anesthesia Del Locatn Provider FOB 08/11/22 Giacomo 37 live - full term 6lbs 12oz Male epidural [facility] Sharma Jesse Delivery Date: 08/11/22 Last Updated by: Katie Lemus RN See problem list for complications Visit Details Expected Delivery Route/Plan Labor Preferences- CB/BF classes: [] labor support person: [] labor intervention preferences: [] pain management options preferred: epidural cut cord/dad catch: [] : [] PP control planned: [] discussed possible routes of delivery and associated risks: ECV -> or PLTCS special requests: [] Plans Covid status: [] Flu vaccine: dec Tdap vaccine:given Rhogam: na LARC form signed: delcined movement and labor precautions reviewed. Problem list reviewed and updated with the most current plan of care details and appropriate orders placed. Relevant counseling for the gestational age provided. Continue routine care and follow up unless otherwise noted in visit notes/problem list details OB Flowsheet Initial Weight: Not Recorded Date -?-?-?-?-?-?-?-?-?-?-?-?- EGA Weight BP Urine Prot -?-?-?-?-?-?-?-?-?-?-?-?- Glucose FHR FuHt Pres Dilation -?-?-?-?-?-?-?-?-?-?-?-?- Effaced St Visit Note 08/15/24 -?-?-?-?-?-?-?-?-?-?-?-?- 8w 5d 254 lb 8 oz 113/75 -?--?-?-?-?-?-?-?-?-?-?-?- 157 -?-?-?-?-?-?-?-?-?-?-?-?- KW CRL not cons with dates. ANN-MARIE changed. accepts NIPT 09/09/24 -?-?-?-?-?-?-?-?-?-?-?-?- 12w 2d 256 lb 4 oz 127/75 Nega tive -?-?-?-?-?-?-?-?-?-?-?-?- Negative 160 -?-?-?-?-?-?-?-?-?-?-?-?- JV-CRL consisten t with last scan. (11 weeks 6 days ) JV-CRL consistent with LMP a nd last ANN-MARIE was changed inappropriately as did not follow ACOG guidelines. 10/06/24 -?-?-?-?-?-?-?-?-?-?-?-?- 16w 1d 259 lb 2 oz 118/75 Nega tive -?-?-?-?-?-?-?-?-?-?-?-?- Negative 160 -?-?-?-?-?-?-?-?-?-?-?-?- KW- no vb/crampi ng. MFM US ordered. movement and FHT on handheld US today 11/03/24 -?-?-?-?-?-?-?-?-?-?-?-?- 20w 1d 262 lb 6 oz 105/66 Nega tive -?-?-?-?-?-?-?-?-?-?-?-?- Negative 145 -?-?-?-?-?-?-?-?-?-?-?-?- MH-No VB. Good F M Some headaches and typically resolved with tylenol/caffeine. Phenergan sent. reviewed S&S pre E. 12/03/24 -?-?-?-?-?-?-?-?-?-?-?-?- 24w 3d 270 lb 3 oz 114/69 Nega tive -?-?-?-?-?-?-?-?-?-?-?-?- Negative 150 25 -?-?-?-?-?-?-?-?-?-?-?-?- JV- no lof, vagi nal bleeding, or dec fm. glucola ordered 12/30/24 -?-?-?-?-?-?-?-?-?-?-?-?- 28w 2d 270 lb 2 oz 119/77 Nega tive -?-?-?-?-?-?-?-?-?-?-?-?- Negative 140 28 -?-?-?-?-?-?-?-?-?-?-?-?- SM- no vb lof go od fm no regular ctx nl echo per patient 01/13/25 -?-?-?-?-?-?-?-?-?-?-?-?- 30w 2d 273 lb 125/72 Negative -?-?-?-?-?-?-?-?-?-?-?-?- Negative 145 31 -?-?-?-?-?-?-?-?-?-?-?-?- SM- no vb lof go od fm no reuglar ctx co back pain. 01/28/25 -?-?-?-?-?-?-?-?-?-?-?-?- 32w 3d 275 lb 2 oz 130/72 -?-?-?-?-?-?-?-?-?-?-?-?- 150 34 -?-?-?-?-?-?-?-?-?-?-?-?- Sm- no vb lof go od fm n oreular ctx 02/12/25 -?-?-?-?-?-?-?-?-?-?-?-?- 34w 4d 277 lb 7 oz 133/76 Nega tive -?-?-?-?-?-?-?-?-?-?-?-?- Negative 135 -?-?-?-?-?-?-?-?-?-?-?-?- KW- no vb/lof/ct x KW- no vb/lof/ctx. had growt h US today-pending. NST today 02/20/25 -?-?-?-?-?-?-?-?-?-?-?-?- 35w 5d 278 lb 7 oz 126/70 Nega tive -?-?-?-?-?-?-?-?-?-?-?-?- Negative 125 -?-?-?-?-?-?-?-?-?-?-?-?- KW- NST only agapito ctive 02/26/25 -?-?-?-?-?-?-?-?-?-?-?-?- 36w 4d 278 lb 1 oz 123/65 Nega tive -?-?-?-?-?-?-?-?-?-?-?-?- Negative 140 -?-?-?-?-?-?-?-?-?-?-?-?- JV- marked varia bility, unable to tell baseline on nst. sending to L&D for further monitoring 03/05/25 -?-?-?-?-?-?-?-?-?-?-?-?- 37w 4d 276 lb 135/76 -?-?-?-?-?-?-?-?-?-?-?-?- 150 36 Cephalic 0 -?-?-?-?-?-?-?-?-?-?-?-?- -3 JV- no l of, vaginal bleeding, or dec fm. NST reactive. 03/12/25 -?-?-?-?-?-?-?-?-?-?-?-?- 38w 4d 280 lb 4 oz 138/85 Nega tive -?-?-?-?-?-?-?-?-?-?-?-?- Negative 145 38 Transverse 1.5 -?-?-?-?-?-?-?-?-?-?-?-?- 50 -4 JV- position is transverse with head at mid to left upper quadrant and appears footling breech. NST reactive. patient wants to take the to decide if wants a version. In the meantime version with section is set up for sunday pending approval of the product management consultant physician and will bring her back sunday for a repeat scan. JV- position is transv erse with head at mid to left upper quadrant and appears footling breech. NST reactive. patient wants to take the to decide if wants a version. In the meantime version with section is set up for sunday pending approval of the product management consultant physician and will bring her back sunday for a repeat scan. if is vertex on sunday then will try for 7am induction w and cancel the procedures on sunday. (unable to do an am induction due to staffing on sunday) 03/16/25 -?-?-?-?-?-?-?-?-?-?-?-?- 39w 1d 278 lb 147/81 Negative -?-?-?-?-?-?-?-?-?-?-?-?- Negative 150 Transverse 3 -?-?-?-?-?-?-?-?-?-?-?-?- 80 -2 KW- repeat scan shows head at maternal LUQ. has been having ctx since 4am. to and dr Patiño notified. NST FHR Rate Baby A Baseline: 130 Variability:: Moderate Accelerations:: 15 x 15 Decelerations:: None NST Reactive:: Yes FHR Category:: Category I Uterine Activity:: irregular ROS Constitutional Constitutional: Reports systems reviewed and no addt'l complaints, except as documented Vital Signs Vital Signs Vital Signs: 03/16/25 11:18 03/16/25 11:18 03/16/25 11:18 Temperature Temperature Source Temporal Pulse Rate 104 H Respiratory Rate Blood Pressure 140/84 H BP Systolic 140 BP Diastolic 84 Pulse Ox 03/16/25 11:18 03/16/25 11:18 03/16/25 11:18 Temperature Temperature Source Pulse Rate 98 Respiratory Rate 16 Blood Pressure BP Systolic BP Diastolic Pulse Ox 99 03/16/25 11:18 03/16/25 12:01 03/16/25 12:01 Temperature 98.4 F Temperature Source Pulse Rate 99 Respiratory Rate Blood Pressure 147/83 H BP Systolic 147 BP Diastolic 83 Pulse Ox 03/16/25 12:01 03/16/25 12:01 03/16/25 12:06 Temperature Temperature Source Pulse Rate 103 H Respiratory Rate Blood Pressure 146/80 H BP Systolic 146 BP Diastolic 80 Pulse Ox 100 03/16/25 12:06 03/16/25 12:06 03/16/25 12:06 Temperature Temperature Source Pulse Rate 103 H 105 H Respiratory Rate Blood Pressure BP Systolic BP Diastolic Pulse Ox 99 03/16/25 12:12 03/16/25 12:12 03/16/25 12:12 Temperature Temperature Source Pulse Rate 100 105 H Respiratory Rate Blood Pressure 134/76 H BP Systolic 134 BP Diastolic 76 Pulse Ox 03/16/25 12:12 03/16/25 12:16 03/16/25 12:16 Temperature Temperature Source Pulse Rate 101 H Respiratory Rate Blood Pressure 122/60 H BP Systolic 122 BP Diastolic 60 Pulse Ox 99 03/16/25 12:17 03/16/25 12:17 03/16/25 12:20 Temperature Temperature Source Pulse Rate 103 H Respiratory Rate 16 Blood Pressure BP Systolic BP Diastolic Pulse Ox 99 03/16/25 12:21 03/16/25 12:21 03/16/25 12:22 Temperature Temperature Source Pulse Rate 100 103 H Respiratory Rate Blood Pressure 130/64 H BP Systolic 130 BP Diastolic 64 Pulse Ox 03/16/25 12:22 03/16/25 12:25 03/16/25 12:27 Temperature Temperature Source Pulse Rate 107 H Respiratory Rate 16 Blood Pressure BP Systolic BP Diastolic Pulse Ox 100 03/16/25 12:27 03/16/25 12:30 03/16/25 12:32 Temperature Temperature Source Pulse Rate Respiratory Rate 18 Blood Pressure 109/56 L BP Systolic 109 BP Diastolic 56 Pulse Ox 100 03/16/25 12:32 03/16/25 12:32 03/16/25 12:32 Temperature Temperature Source Pulse Rate 118 H 116 H Respiratory Rate Blood Pressure BP Systolic BP Diastolic Pulse Ox 100 03/16/25 12:35 03/16/25 12:36 03/16/25 12:36 Temperature Temperature Source Pulse Rate 114 H Respiratory Rate 16 Blood Pressure 104/58 L BP Systolic 104 BP Diastolic 58 Pulse Ox 03/16/25 12:44 03/16/25 12:44 03/16/25 13:36 Temperature Temperature Source Pulse Rate 129 H Respiratory Rate Blood Pressure 101/58 L 98/49 L BP Systolic 101 98 BP Diastolic 58 49 Pulse Ox 03/16/25 13:36 03/16/25 13:54 03/16/25 13:54 Temperature Temperature Source Pulse Rate 105 H 94 Respiratory Rate Blood Pressure BP Systolic BP Diastolic Pulse Ox 99 03/16/25 13:59 03/16/25 13:59 03/16/25 14:04 Temperature Temperature Source Pulse Rate 123 H 110 H Respiratory Rate Blood Pressure BP Systolic BP Diastolic Pulse Ox 99 03/16/25 14:04 03/16/25 14:05 03/16/25 14:05 Temperature Temperature Source Pulse Rate 108 H Respiratory Rate Blood Pressure 106/59 L BP Systolic 106 BP Diastolic 59 Pulse Ox 100 03/16/25 14:47 03/16/25 14:47 03/16/25 14:47 Temperature 97.9 F Temperature Source Temporal Pulse Rate Respiratory Rate 16 Blood Pressure BP Systolic BP Diastolic Pulse Ox 03/16/25 14:48 03/16/25 14:48 03/16/25 14:48 Temperature Temperature Source Pulse Rate 126 H 114 H Respiratory Rate Blood Pressure BP Systolic BP Diastolic Pulse Ox 100 03/16/25 15:44 03/16/25 15:44 Temperature Temperature Source Pulse Rate 126 H Respiratory Rate Blood Pressure 128/60 H BP Systolic 128 BP Diastolic 60 Pulse Ox Weight Weight: 275 lb 9.245 oz Body Mass Index (BMI) 43.1 PRE- weight 250 lb PRE- Body Mass Index 39.2 (BMI) Physical Exam Const alert and no apparent distress General Appearance: comfortable HEENT normocephalic Head and Scalp: atraumatic Neck full ROM Resp normal respiratory effort GI soft to palpation and non-tender Extremity normal to inspection Labs Labs Labs: Blood Type A POSITIVE Antibody Screen NEGATIVE Hct, (37-47) 35.2 % L Hgb, (12.0-15.0) 11.5 g/dL L Obstetrics Ultrasound Syphilis Total Ab, (Nonreactive) Nonreactive Rubella IgG Antibody, (Nonreactive) Nonreactive Hep Bs Antigen, (Nonreactive) Nonreactive Hepatitis C Antibody, (Nonreactive) Nonreactive Chlamydia DNA (KANDIS), (Negative) Negative N.gonorrhoeae DNA (KANDIS), (Negative) Negative HIV 1&2 Antibody, (Nonreactive) Nonreactive Glucose 1 Hr 50 gm, (70-140) 123 mg/dL Gest Glucose Tolerance mg/dL Assessment & Plan (1) Breech presentation: QUALIFIERS: Fetus number: single or unspecified fetus Qualified Code(s): O32.1XX0 - Maternal care for breech presentation, not applicable or unspecified PLAN: Patient consented for ECV. If successful, augment labor as needed. If unsuccessful, will be for a primary delivery. Epidural in place. (2) History of GBS (group B streptococcus) UTI, currently : COMMENT: PCN in labor (3) Large for gestational age fetus affecting management of mother, antepartum: QUALIFIERS: Fetus number: single or unspecified fetus Qualified Code(s): O36.60X0 - Maternal care for excessive growth, unspecified trimester, not applicable or unspecified COMMENT: ac 96th %- repeat 1 hour. PLAN: Repeat GCT within normal limits. 38w1d EFW 78%, AC 89% (4) Abnormal glucose affecting : COMMENT: passed glucose (5) Elevated blood pressure reading without diagnosis of hypertension: PLAN: mild range BP in office today, no previous elevated BP continue to monitor, order CMP if meets criteria for gestational hypertension intrapartum asymptomatic (6) Rubella non-immune status, antepartum: COMMENT: offer MMR PP (7) Obesity affecting : QUALIFIERS: Trimester: second trimester Obesity type affecting : unspecified obesity Qualified Code(s): O99.212 - Obesity complicating , second trimester COMMENT: BMI: 39.6, HgBA1C ordered w/NOB (8) Family history of congenital heart defect: COMMENT: nl echo, Pt's brother had hypoplastic left heart, (9) Family history of hearing loss at age younger than 7 years: COMMENT: FOB's brother born deaf (10) Marijuana use: COMMENT: Last use June 2024 - random tox ordered Vital Signs Temperature 97.9 F 03/16/25 14:47 Temperature Source Temporal 03/16/25 14:47 Pulse Rate 126 H 03/16/25 15:44 Respiratory Rate 16 03/16/25 14:47 Blood Pressure 128/60 H 03/16/25 15:44 BP Systolic 128 03/16/25 15:44 BP Diastolic 60 03/16/25 15:44 Pulse Ox 100 03/16/25 14:48 Laboratory Results - last 24 hr 03/16/25 10:35: WBC 14.7 H, RBC 4.57, Hgb 11.5 L, Hct 35.2 L, MCV 77.0 L, MCH 25.2 L, MCHC 32.7, RDW Std Deviation 41.6, RDW Coeff of [place] 15.4 H, Plt Count 436, MPV 11.5, Immature Gran % (Auto) 2.100 H, Neut % (Auto) 80.7 H, Lymph % (Auto) 10.2 L, [place] % (Auto) 6.1, Eos % (Auto) 0.5, Baso % (Auto) 0.4, Absolute Neuts (auto) 11.8 H, Absolute Lymphs (auto) 1.50, Nucleated RBC % 0, Creatinine 0.60 L, Estim Creat Clear Calc 191.96, Est GFR (MDRD) Non-Af 127, Uric Acid 5.7, AST 23, ALT 16, U Random Total Protein 14.3 H, Urine Creatinine 89.20, Protein/Creatinin Ratio 160, Syphilis Total Ab Nonreactive, Blood Type A POSITIVE, Antibody Screen NEGATIVE
[2025-03-16] MEDS: Penicillin G 3,000,000 Units 50 ML 100 UNITS IV ×2 (16:21→21:00)
[2025-03-16 16:26] LABS: Barbiturate Urine NEGATIVE (< 200 ng/mL); Benzodiazepine Urine NEGATIVE (< 200 ng/mL); PCP Urine NEGATIVE (< 25 ng/mL); THC Urine NEGATIVE (< 50 ng/mL)
[2025-03-16] MEDS: Oxytocin 15 Units/NS 250ml 15 UNITS/250 ML IV.SOLN 2 UNITS IV (16:58)
--- NOTE | 2025-03-16 17:32 | PCM.PN.BLA ---
Progress Note Preprocedure diagnosis: Breech presentation Post procedure diagnosis: Vertex presentation Procedure: External cephalic version Surgeon: Anjali Tinajero EBL: None Complications: None Anesthesia: None Special medications: Terbutaline Seizure details: The fetus was found to be in breech presentation informed by ultrasound. Patient had an IV in place, normal amniotic fluid, no contraindications to a vaginal delivery, and reactive nonstress test prior to the procedure. Patient was placed in the dorsal supine position after the terbutaline was given. Ultrasound gel was applied to the patient's abdomen and using constant upward pressure to elevate the buttocks out of the pelvic inlet constant pressure was applied to the buttocks and to the area behind the back of the neck and head to encourage a forward roll of the fetus. Constant pressure was applied and slowly the infant was converted to a vertex presentation. Bedside ultrasound was used to confirm vertex presentation and reassuring heart rate. Patient was replaced on the NST and monitored to assure reassuring status. No complications.
--- NOTE | 2025-03-16 17:32 | PCM.PN.BLA ---
Progress Note Preprocedure diagnosis: Breech presentation Post procedure diagnosis: Vertex presentation Procedure: External cephalic version Surgeon: Anjali Smith EBL: None Complications: None Anesthesia: epidural Special medications: Terbutaline Seizure details: The fetus was found to be in breech presentation informed by ultrasound. Patient had an IV in place, normal amniotic fluid, no contraindications to a vaginal delivery, and reactive nonstress test prior to the procedure. Patient was placed in the dorsal supine position after the terbutaline was given. Ultrasound gel was applied to the patient's abdomen and using constant upward pressure to elevate the buttocks out of the pelvic inlet constant pressure was applied to the buttocks and to the area behind the back of the neck and head to encourage a forward roll of the fetus. Constant pressure was applied and slowly the infant was converted to a vertex presentation. Bedside ultrasound was used to confirm vertex presentation and reassuring heart rate. Patient was replaced on the NST and monitored to assure reassuring status. No complications. Multi Select Codes Urinary/Genital Urinary/Genital CPT Codes: 06913 ECV
--- NOTE | 2025-03-16 20:13 | PCM.PN.BLA ---
Progress Note Labor progress note Patient comfortable with epidural. BSUS confirmed still cephalic however compound presentation with hand. Pitocin at 8 mU, continue to increase as able. Once head is well-applied, will consider AROM. NST FHR Rate Baby A Baseline: 135 Variability:: Moderate Accelerations:: 15 x 15 Decelerations:: None NST Reactive:: Yes FHR Category:: Category I Uterine Activity:: q3-6 minutes
[2025-03-16] MEDS: 0.9% Saline Lock 10 ML Syringe IV (20:51)
[2025-03-17] VITALS (43 sets, daily range): BP systolic 107–161; BP diastolic 56–74; PULSE 75–131; RESP 16–18; TEMP 36.7–37.1; O2SAT 81–100
[2025-03-17] MEDS: LACTATED RINGERS 500 ML 999 ML IV (00:59)
[2025-03-17] MEDS: Oxytocin 15 Units/NS 250ml 15 UNITS/250 ML IV.SOLN 334 UNITS IV (02:01)
--- NOTE | 2025-03-17 02:13 | EX.PCM.OBVAG ---
Maternal Data Information ANN-MARIE Calculator Estimated Delivery Date Method Current WG Current Estimate 03/22/25 LMP (Certain) 39w 2d Other Estimates 03/28/25 Ultrasound #1 38w 3d 03/25/25 Ultrasound #2 38w 6d Vaginal Delivery Maternal Presentation Maternal Presentation: Martin Contreras is a 24 year old, now , who presented at 39w1d in active labor in the setting of breech presentation. She underwent a successful external cephalic version. She was GBS positive and recieved PCN ppx. was otherwise complicated by rubella non-immune status, family history of congenital heart defect, and elevated BP without diagnosis of hypertension. She was augmented with pitocin and AROM. She progressed well to dilate to 10cm. Patient began pushing and delivered the head in the CHANDRAKANT presentation. The head was delivered atraumatically and a loose nuchal cord ?1 was identified and easily reduced over the 's head. The anterior and posterior shoulders delivered without complication followed by the rest of the and the was placed on the maternal abdomen. Delayed cord clamping was employed for approximately 60 seconds. Cord was clamped and cut and gentle traction was applied to the cord and the placenta delivered spontaneously immediately following it was noted to be intact with three-vessel cord. The perineum and vagina were inspected and noted to have no laceration. EBL was 100 cc. Patient and tolerated delivery well. Vaginal Delivery Information Procedure Performed: Spontaneous Vaginal Delivery Surgeon/Practitioner: Sonia Patiño Date of Procedure: 03/17/25 Pre-Procedure Diagnosis: breech presentation, labor Post-Procedure Diagnosis: successful external cephalic version, spontaneous vaginal delivery Type of anesthesia: Epidural Estimated Blood Loss: 100 Time of Delivery: 01:51 Findings Presentation: CHANDRAKANT Amniotic Membrane Rupture Type: Artificial Amniotic Fluid Description: Clear Placental Delivery Description: Spontaneous Placenta Disposition: [facility] Cord Vessel Description: 3 Vessels Cord Entanglement: Around neck x 1, loose Nuchal Cord Compression: With compression Cord Gases: ABG and VBG Infant A Gender: Female (1 minute): 7 (5 minute): 9 Post Vaginal Deli Medications given after delivery: IV Pitocin Episiotomy Description: None Laceration: None
[2025-03-17] MEDS: Oxytocin 15 Units/NS 250ml 15 UNITS/250 ML IV.SOLN 83 UNITS IV (02:48)
[2025-03-18 02:10] VITALS: BP 137/78; PULSE 81
[2025-03-18 02:13] VITALS: BP 137/78; PULSE 76; RESP 16; TEMP 36.6; O2SAT 97
[2025-03-18 08:02] VITALS: BP 133/72; PULSE 81; O2SAT 98
[2025-03-18 10:00] VITALS: BP 133/72; PULSE 82; RESP 16; TEMP 36.9; O2SAT 97
--- NOTE | 2025-03-18 10:41 | PCM.PN.OB ---
Subjective Subjective Patient doing well without complaints. Tolerating PO. Ambulating and voiding without difficulty. Feeding well. Denies chest pain, shortness of breath, calf pain/swelling, fevers, chills, lightheadedness. Objective Data Objective Data Vital Signs: Vital Signs Temp Pulse Resp BP Pulse Ox O2 Del Method 97.8 F 81 16 133/72 H 98 Room Air 03/18/25 02:13 03/18/25 08:02 03/18/25 02:13 03/18/25 08:02 03/18/25 08:02 03/18/25 02:13 Oxygen Delivery Method Room Air Weight: 275 lb 9.245 oz Body Mass Index (BMI) 43.1 Intake & Output: Intake and Output for Last 24 Hours 03/16/25 03/17/25 03/18/25 23:59 23:59 23:59 Intake Total 3645.41 / 3645.41 1565.84 / 1565.84 Output Total 150 / 150 900 / 900 Balance 3495.41 / 3495.41 665.84 / 665.84 Lab / Micro Data 03/16/25 10:35 03/16/25 10:35 Physical Exam Const alert and oriented x3 HEENT normocephalic Eyes PERRL Neck full ROM Resp normal respiratory effort GI soft to palpation GI Narrative: FF below U Assessment & Plan (1) (spontaneous vaginal delivery): COMMENT: girl Ebony KV PLAN: Plan s/p PPD # 1 1. routine post delivery care 2. breast feeding- support given 3. rh positive 4. rubella immune 5. home today
--- NOTE | 2025-03-18 11:00 | CASEMGMT ---
Addendum entered by Simon Cho 03/18/25 14:10: Note entered before completed. Depression/Shaken Baby/Safe Sleeping:? Sw discussed signs and symptoms of baby blues and mood and anxiety disorders to be mindful of during this period. MOB states that when she struggled with depression after her son was born, she talked to her OBGYN and got prescribed sertraline. MOB states that she took it for about 6 months and then felt like herself again. MOB states that during her she felt good, denied feeling down, sad or anxious. MOB reports that now that baby is here she feels really good. MOB states that she is not good at sharing her feelings, and she tends to stuff them until they become too much and then she blows over. FOB reports that he is able to tell when MOB is struggling with something, and he tries to help her. Sw encouraged MOB to be more open with FOB and her supports when she feels like she is struggling. MOB expressed understanding and states that she will try to do this during this period. Sw also encouraged MOB to reach out to her OBGYN again if she thinks that medication would be another remedy to help her mental health, in conjunction with mental health therapy. Sw provided MOB with resources for counseling services. +Sw expressed importance of safe sleep inside and outside of the bedroom. Sw educated MOB on always placing baby in bedside bassinet and not sleeping with baby in bed with her. Sw explained that baby's bassinet should be free of any blankets, pillows or stuffed animals. And baby should be sleeping in a onsie and a sleep sack/ swaddle sack for sleep. MOB expressed understanding. Sw discouraged sleeping with baby on a couch or in a reclining chair explaining that sleep accidents also happen in those areas as well. Sw educated MOB on shaken baby prevention. MOB expressed understanding. ASSESSMENT:? MOB and baby admitted following labor and delivery of . MOB with mental health history of anxiety and depression. MOB and FOB both welcoming of sw involvement and talkative throughout completion of assessment. MOB observed laying in reclining cat holding baby skin to skin. MOB looked at baby lovingly and caring for her appropriately. FOB was sitting on bed and contributed a lot to conversation. Parents were observed to be supportive of one another. FOB reports to understand when MOB is feeling anxious and knows how to help and support her. MAURA feels comfortable reaching out to her OBGYN if she is feeling anxious and is not against starting medication to help her manage her mental health symptoms. Both parents report that they have different and more supportive jobs than they did two years ago. MAURA states that she thinks that is the biggest contributing factor to her symptoms and she hope that this time she does not experience them because her job is much more lenient. Parents have obtained all necessary baby items and have natural supports in place. Safe Plan of Care for infant related to substance use:?Education provided to parents regarding abstaining from smoking THC and nicotine products. Especially while MAURA is providing breast milk to baby. MAURA expressed understanding and reports that she does not intend on using THC now that baby is here, and did not use throughout her . PLAN:? No other services requested or indicated. MOB and baby to be discharged when medically ready. Parents were provided literature regarding: signs and symptoms of baby blues and mood and anxiety disorders, Help Me Grow, shaken baby prevention, ABCs of safe sleep and a list of [facility] resources that are available for them should any needs present themselves. Simon Cho, MATERIAL WORKER, NETWORK SUPPORT SPECIALIST Original Note: Social Work Assessment Labor and Delivery Unit Patient Address: [address] [place] [address] [address] [place] [address] Phone number: [phone] Date of Referral: 03/16/25 Time of Referral:? 1109 Referred By: Dr. Patiño Date of Intervention: ??03/18/25 Time of Intervention:? 1015 Reason for Referral:? hx of THC, anxiety Filiberto completed chart review and acknowledges social work consult. Sw presented to bedside and introduced self to mother of baby, MOB- Martin and father of baby, FOB- Jesse. Sw explained reason for sw involvement and completed psychosocial assessment. Sw explained that sw recognizes patient/ family from their prior delivery/ admission two years ago when they had their son. Sw congratulated parents on their newest arrival. History obtained from: medical records, MOB and FOB Household composition: Currently residing in the home is PRATEEK LORENZO, their 2 year old son, Cesar and baby when ready for discharge. Parents deny any housing concerns, stating that their home is safe and secure. Patient's parent/guardian status:?MOB and FOB have been together for 5 years. They are , but are having their official wedding next January. No concerns reported of domestic violence or intimate partner violence. Valentine baby is parents second child together. ? Medical History: ?MAURA is 24 year old female who is 2, para 1- now 2 following labor and delivery of . MAURA recieved routine care during with [facility]. MAURA presented to hospital in active labor and delivered baby via vaginal delivery on 03/17/25 at 39 weeks gestation. Baby girl, named Kathie, was born weighing 7lbs 10oz and had apgars of 7 and 9 at one and five minutes of life, respectfully. MAURA is breast feeding and states that it is going well. Baby will be followed by Caryl Gilliland for pediatric care. Educational Status:?Both parents graduated from high school and deny any problems with reading, learning or comprehension. Financial Status: Both parents are gainfully employed outside of the home. Infant Supplies:?? All necessary baby supplies obtained, including: car seat, safe sleep space, clothes, diapers and wipes. Childcare/Caregiver(s):? MAURA and PRATEEK will be the primary caregivers to baby. Parents reports that when they need childcare assistance they have helpers who they have used in the past. Transportation:?Both parents have their drivers license and reliable means of transportation. ? Programs/Agencies Involved: Parents are over income for linkage to community resources for financial assistance. ??? Children Services/Legal Issues:??No history of children services involvement. MAURA used THC prior to discovering her , but once discovering she was discontinued use. No issues or concerns warranting referral to be made at this time. ? Behavioral Health Issues: ??Mental Health History:?PRATEEK denies mental health history or diagnoses. States that he believes to have ADHD, but has never been diagnosed. MAURA states that she has anxiety. Reports that she did have depression after she had her first baby. MAURA able to recognize that her symptoms started when she was six months . MAURA stated that she had some rage that she mostly took out on FOB (but never violent, mostly built up frustration from her work). MAURA stated that her job at that time required her to work long hours, and she had extreme separation anxiety from her baby. MAURA states that she would cry a lot, sometimes two days during the week for long period of time. ?? Substance Use History: MOB states that she used THC sparingly socially or to relax. MOB states that when she found out about she discontinued use. ?? Family History: Parents deny family history of addiction or significant mental health history. Drug Screens: ?MOB had presumptive positive in July for THC, and negative urine drug screen at time of delivery. ? Family/Social Stressors:? Parents deny any issues, concerns or stressors at this time. Support Systems: MOB states that both sets of grandparents and MOB's siblings are supportive. Depression/Shaken Baby/Safe Sleeping:? Sw discussed signs and symptoms of baby blues and mood and anxiety disorders to be mindful of during this period. MOB states that when she struggled with depression after her son was born, she talked to her OBGYN and got prescribed sertraline. MOB states that she took it for about 6 months and then felt like herself again. MOB states that during her she felt good, denied feeling down, sad or anxious. MOB reports that now that baby is here she feels really good. MOB staes +Sw expressed importance of safe sleep inside and outside of the bedroom. Sw educated MOB on always placing baby in bedside bassinet and not sleeping with baby in bed with her. Sw explained that baby's bassinet should be free of any blankets, pillows or stuffed animals. And baby should be sleeping in a onsie and a sleep sack/ swaddle sack for sleep. MOB expressed understanding. Sw discouraged sleeping with baby on a couch or in a reclining chair explaining that sleep accidents also happen in those areas as well. Sw educated MOB on shaken baby prevention. MOB expressed understanding. ASSESSMENT:? Safe Plan of Care for infant related to substance use:? PLAN:? No other services requested or indicated. MOB and baby to be discharged when medically ready. Parents were provided literature regarding: signs and symptoms of baby blues and mood and anxiety disorders, Help Me Grow, shaken baby prevention, ABCs of safe sleep and a list of county resources that are available for them should any needs present themselves.
[2025-03-18] MEDS: FLU VACCINE 2025-26(6MOS UP) 45 MCG/0.5 ML SYRINGE IM (11:48)
--- NOTE | 2025-03-22 10:24 | PCM.DC.SUM ---
Providers Date of Admission: 03/16/25 Primary Care Physician: SAMMI Rachel Reason For Visit: VAG Diagnosis Discharge Diagnosis (1) (spontaneous vaginal delivery): Status: Acute Code(s): O80 - Encounter for full-term uncomplicated delivery (2) Rubella non-immune status, antepartum: Status: Acute Code(s): O09.899 - Supervision of other high risk pregnancies, unspecified trimester; Z28.39 - Other underimmunization status Plan s/p PPD # 1 1. routine post delivery care 2. breast feeding- support given 3. rh positive 4. rubella immune 5. home today Medications at Discharge Home Medications docosahexaenoic acid 200 mg capsule ( DHA) 200 mg PO DAILY 08/01/24 famotidine 20 mg tablet (Pepcid) 20 mg PO BID indigestion #60 tabs 09/09/24 promethazine 12.5 mg tablet 12.5 mg PO Q6H PRN nausea and vomiting #30 tabs 11/03/24 Hospital Course Operations - (vaginal delivery) Procedures None Summary of Care Provided Hospital Course: Normal vaginal delivery with normal postpartem course and discharge day 3 Weight / BMI Weight Weight: 275 lb 9.245 oz Body Mass Index (BMI) 43.1 PRE- weight 250 lb PRE- Body Mass Index 39.2 (BMI) ABG / Lab / Microbiology Data 03/16/25 10:35 03/16/25 10:35 D/C Instructions DC O2, CPAP, BIPAP Needs Home O2 Discharge instructions: No Meaningful Use Info Meaningful Use Meaningful Use Diagnoses (Choose all that apply): None applicable Discharge Plan Admission Admit Date/Time: 03/16/25 10:34 Attending Provider: Sonia Patiño Primary Care Provider: Caryl Gilliland NP Discharge Orders/Prescriptions Prescriptions: No Action DHA 200 mg capsule 200 mg PO DAILY famotidine [Pepcid] 20 mg tablet 20 mg PO BID Qty: 60 6RF promethazine 12.5 mg tablet 12.5 mg PO Q6H PRN (Reason: nausea and vomiting) Qty: 30 0RF Referrals / Follow Up: Caryl Gilliland NP, [facility] [Primary Care Provider, Family Practice] Disposition Disposition (needs filled in before D/C Order can be placed): Home, Self Care
== END 2025-03-18 12:45 | disposition home or self-care (01) | DRG 806 ==
PROVIDERS: Admitting Provider Student in an Organized Health Care Education/Training Program; PCP Nurse Practitioner Family; Referring Provider Student in an Organized Health Care Education/Training Program; Visit Provider Student in an Organized Health Care Education/Training Program
DX: O32.8XX0 Maternal care for other malpresentation of fetus, not applicable or unspecified (principal); Z37.0 Single live birth; O99.324 Drug use complicating childbirth; R03.0 Elevated blood-pressure reading, without diagnosis of hypertension; F12.90 Cannabis use, unspecified, uncomplicated; O99.214 Obesity complicating childbirth; O26.893 Other specified pregnancy related conditions, third trimester; O36.63X0 Maternal care for excessive fetal growth, third trimester, not applicable or unspecified; O69.81X0 Labor and delivery complicated by cord around neck, without compression, not applicable or unspecified; O99.824 Streptococcus B carrier state complicating childbirth; O99.810 Abnormal glucose complicating pregnancy; Z3A.39 39 weeks gestation of pregnancy; Z82.79 Family history of other congenital malformations, deformations and chromosomal abnormalities; Z23 Encounter for immunization
CPT/HCPCS: 59025; 59050; 80307; 82565; 82570; 84156; 84450; 84460; 84550; 85025; 86780; 86850; 86900; 86901; 99221; A4216; G0378; J2405